=== PATIENT | female | born 1960 | race Caucasian/White ===

== ENCOUNTER 2018-09-02 23:15 | Inpatient (IN) | payer BC, OTHER ==
[~2018-09-02] VITALS: Ht 165.1 cm; Wt 120.9 kg
[~2018-09-02 23:15] MED LIST: LISI-167 PO; METH10TA13 PO; SERT50TA28 PO; TRAM50TA2 PO
[2018-09-02] MEDS ORDERED: LORazepam 2 MG/ML, 1ML IVPush ONE (23:30)
[2018-09-02] MEDS ORDERED: SODIUM CHLORIDE FLUSH 10ML SYR IVF ONE (23:30)
[2018-09-02] MEDS ORDERED: LORazepam 2 MG/ML, 1ML ONE (23:35)
--- NOTE | 2018-09-02 23:44 | NUR ---
THIS IS A 58 Y/O FEMALE ARRIVING TO THE ED HYPERVENTILATING AND VERY ANXIOUS SECODARY TO RIGHT STERNAL AND FALNK CHEST PAIN SHE IS EXPERINCING. SHARP PRESSURE IS HER DESCRITION WITH RADIATION TO BACK AND AND LEFT ARM AND JAW. PT REPORTS ANXIETY HX AND ALSO HAVING HTN. PT IS A/OX4 AND ABLE TO PROTECT HER AIRWAY. HAS GOOD CENTRAL AND DISTAL PULSES. PT DENIES ANY TRUAMA OR RECENT DRUG USE. PT CONNECTED TO ALL MONITORS AND LARGE BORE PIV PLACED ON PT. CALL LIGHT IN REACH AND AWAITING FURTHER ORDERS.
[2018-09-02 23:48] LABS: BASOPHILS # (AUTO) 0.15 x10^3/uL (0-0.1); BASOPHILS % (AUTO) 1 % (0-1); EOSINOPHILS # (AUTO) 0.08 x10^3/uL (0-0.4); EOSINOPHILS % (AUTO) 1 % (1-7); LYMPHOCYTES # (AUTO) 3.75 x10^3/uL (1-3.4); LYMPHOCYTES % (AUTO) 34 % (22-44); MD NO; MEAN CORPUSCULAR HGB CONC 33.3 g/dL (32.4-35.8); MEAN CORPUSCULAR VOLUME 84.3 fL (80-100); MEAN PLATELET VOLUME 9.2 fL (7.4-10.4); MONOCYTES # (AUTO) 0.72 x10^3/uL (0.2-0.8); MONOCYTES % (AUTO) 7 % (2-9); NEUTROPHILS % (AUTO) 58 % (42-75); PLATELET COUNT 261 x10^3/uL (130-400); RED BLOOD COUNT 5.03 x10^6/uL (3.82-5.3); RED CELL DISTRIBUTION WIDTH 13.8 % (9.6-15.2)
[2018-09-02 23:58] LABS: INTERNATIONAL NORMALIZED RATIO 0.98 (0.93-1.1); PROTHROMBIN TIME 10.3 Seconds (9.6-11.5)
[2018-09-02 23:59] LABS: ALANINE AMINOTRANSFERASE 29 U/L (12-78); ALBUMIN 3.7 g/dL (3.4-5.0); ANION GAP 6 mmol/L (5-15); CALCIUM 8.9 mg/dL (8.5-10.1); CHLORIDE 108 mmol/L (98-107)
[2018-09-03] MEDS ORDERED: MORPHINE SULFATE 4 MG/ML, 1ML ONE ×2 (00:04→01:39)
[2018-09-03 00:05] LABS: ALKALINE PHOSPHATASE 111 U/L (45-117); BILIRUBIN,TOTAL 0.4 mg/dL (0.2-1.0); CREATININE 1.07 mg/dL (0.55-1.02); TOTAL PROTEIN 7.7 g/dL (6.4-8.2); TROPONIN I < 0.015 ng/mL (0.000-0.045)
--- NOTE | 2018-09-03 00:08 | NUR ---
PATIENT MEDICATED FOR PAIN.
--- NOTE | 2018-09-03 00:18 | NUR ---
PATIENT MOVED TO ROOM 19, REPORT TO IRINEO RIVERA.
[2018-09-03 00:25] LABS: FREE T4 (FREE THYROXINE) 1.04 ng/dL (0.76-1.46)
--- NOTE | 2018-09-03 00:25 | NUR ---
PT RESTING CALMY, PROVIDED PT WITH WARM BLANKET, MONITORS IN PLACE, CALL LIGHT WITHIN REACH. AWAITING CTA
[2018-09-03] MEDS ORDERED: CYCL-259 PO (00:28)
[2018-09-03] MEDS ORDERED: METH5TAB4 PO (00:28)
--- NOTE | 2018-09-03 00:29 | NUR ---
PT TO CTA
[2018-09-03] MEDS ORDERED: morphine SULFATE 10 MG/ML, 1ML IVPush ONE (00:30)
[2018-09-03] MEDS ORDERED: MORPHINE SULFATE 4 MG/ML, 1ML IVPush ONE (00:30)
[2018-09-03] MEDS ORDERED: OMNIPAQUE 350 MG/ML, 100ML BOTTLE ONE ×2 (01:15→23:44)
[2018-09-03] MEDS ORDERED: MORPHINE SULFATE 4 MG/ML, 1ML IVPush PRN (01:30)
--- NOTE | 2018-09-03 01:43 | NUR ---
Break RN: patient re-medicated for pain. warm blanket provided.
--- NOTE | 2018-09-03 02:21 | NUR ---
PT RESTING CALMLY WITH EYES CLOSED, NAD, MONITORS IN PLACE, SIDERAILS UP X2, CALL LIGHT WIHTIN REACH. AWAITING ROOM FOR ADMIT
[2018-09-03] MEDS ORDERED: ENALAPRILAT 1.25 MG/ML, 2ML IVPush PRN (03:00)
[2018-09-03] MEDS ORDERED: NITROGLYCERIN 0.4 MG BOTTLE (25 TABS) SL PRN (03:00)
[2018-09-03] MEDS ORDERED: morphine SULFATE 10 MG/ML, 1ML IVPush PRN (03:00)
[2018-09-03] MEDS ORDERED: KETOROLAC 30 MG/1 ML IV PRN (03:00)
[2018-09-03] MEDS ORDERED: ONDANSETRON 2MG/ML, 2ML IVPush PRN (03:00)
[2018-09-03] MEDS ORDERED: BISACODYL 10 MG SUPP PR PRN (03:00)
[2018-09-03] MEDS ORDERED: ACETAMINOPHEN 325 MG TABLET PO PRN (03:00)
[2018-09-03 03:25] LABS: HEMOGLOBIN A1C 5.8 % (4.2-6.3)
[2018-09-03 04:35] LABS: TROPONIN I < 0.015 ng/mL (0.000-0.045)
[2018-09-03 05:52] LABS: CHOL/HDL RATIO 3.3; LDL/HDL RATIO 1.9 (0.5-3.0)
[2018-09-03 07:17] VITALS: BP 118/80
[2018-09-03] MEDS: LISINOPRIL 10 MG TABLET PO SCH (07:58)
[2018-09-03] MEDS: ASPIRIN 325 MG TABLET EC PO SCH (07:58)
[2018-09-03] MEDS: CYCLOBENZAPRINE 10 MG TABLET PO SCH ×3 (07:58→21:40)
[2018-09-03] MEDS: POLYETHYLENE GLYCOL 17 GM PACKET PO SCH (08:00)
[2018-09-03] MEDS: SENNA/DOCUSATE TABLET PO SCH (08:06)
[2018-09-03] MEDS ORDERED: REGADENOSON 0.4 MG/5 ML SYRINGE ONE (08:12)
[2018-09-03 08:47] LABS: MICROSCOPIC NOT IND
[2018-09-03 08:48] LABS: CULTURE INDICATED? NO
[2018-09-03 11:29] LABS: TROPONIN I < 0.015 ng/mL (0.000-0.045)
[2018-09-03 12:34] VITALS: BP 112/71
[2018-09-03] MEDS: SODIUM CHLORIDE 0.9% 1,000 ML IV SCH (16:57)
[2018-09-03 19:55] VITALS: BP 123/77
[2018-09-03] MEDS: FAMOTIDINE 20 MG/2 ML IVPush SCH (21:40)
[2018-09-04 03:09] VITALS: BP 109/67
[2018-09-04] MEDS: ASPIRIN 325 MG TABLET EC PO SCH (06:00)
[2018-09-04 07:36] VITALS: BP 118/78
[2018-09-04] MEDS: SENNA/DOCUSATE TABLET PO SCH (07:43)
[2018-09-04] MEDS: SODIUM CHLORIDE 0.9% 1,000 ML IV SCH (07:43)
[2018-09-04] MEDS: FAMOTIDINE 20 MG/2 ML IVPush SCH (07:43)
[2018-09-04] MEDS: LISINOPRIL 10 MG TABLET PO SCH (07:43)
[2018-09-04] MEDS: POLYETHYLENE GLYCOL 17 GM PACKET PO SCH (07:43)
[2018-09-04] MEDS: CYCLOBENZAPRINE 10 MG TABLET PO SCH (07:43)
[2018-09-04] MEDS ORDERED: OMEP10SU2 PO (08:49)
== END 2018-09-04 10:40 | disposition home or self-care (01) | DRG 384 ==
LOC: ED 09-03 00:13 → EDIP 09-03 01:19 → 5SO 09-03 03:21 → 3NE 09-03 18:32 → DCLOUNGE 09-04 10:35
PROVIDERS: ADMIT Family Medicine; ATTEND Family Medicine
DX: K27.9 Peptic ulcer, site unspecified, unspecified as acute or chronic, without hemorrhage or perforation (principal); Z68.41 Body mass index [BMI] 40.0-44.9, adult; I10 Essential (primary) hypertension; K21.9 Gastro-esophageal reflux disease without esophagitis; R07.9 Chest pain, unspecified; M54.9 Dorsalgia, unspecified; G89.29 Other chronic pain; E11.9 Type 2 diabetes mellitus without complications; K59.00 Constipation, unspecified; E66.9 Obesity, unspecified; Z88.5 Allergy status to narcotic agent
CPT/HCPCS: 36415; 99285; J3490; 71045; 71275; 74177; 78452; 80053; 80061; 81003; 83036; 83690; 84439; 84443; 84484; 85025; 85610; 85730; 93005; 93017; 96374; 96375; G0378; J1885; J2785; Q9967; A9502; C9898; J2060; J2270; J7030